=== PATIENT | female | born 1965 | race Caucasian/White ===

== ENCOUNTER 2020-09-11 21:39 | Observation (INO) ==
[2020-09-11] MEDS ORDERED: Aspirin 81 MG TAB.CHEW PO ONE (22:04)
[2020-09-11 22:06] LABS: Basophils % 0.6 %; Eosinophils # 0.2 K/mcL (0.0-0.6); Eosinophils % 2.2 %; Hematocrit 38.6 % (35.3-44.9); Immature Granulocytes % 0.4 % (0-4); Lymphocytes # 2.5 K/mcL (0.6-4.6); Lymphocytes % 34.9 %; Mean Corpuscular HGB Conc 33.7 g/dL (31.6-35.5); Mean Corpuscular Volume 89.1 fL (83.0-100.0); Mean Platelet Volume 10.1 fL (9.4-12.4); Monocytes # 0.6 K/mcL (0.0-1.3); Monocytes % 7.9 %; Neutrophils # 3.9 K/mcL (1.6-8.9); Platelet Count 287 K/mcL (140-400); Red Blood Count 4.33 M/mcL (3.82-4.97); Red Cell Distribution Width 11.9 % (11.5-14.5); White Blood Count 7.2 K/mcL (4.3-11.1)
[2020-09-11] MEDS ORDERED: *HR* FentaNYL (PF) 100 MCG/2 ML VIAL IVP ONE (22:06)
[2020-09-11 22:27] LABS: BUN/Creatinine Ratio 21 (6-26); Blood Urea Nitrogen 14 mg/dL (6-20); Calcium 9.3 mg/dL (8.6-10.3); Carbon Dioxide 24 mEq/L (23-29); Chloride 108 mEq/L (98-107); Glucose 114 mg/dL (70-105); Osmolality,Calculated 289 (280-300); Potassium 3.5 mEq/L (3.5-5.1); Sodium 139 mEq/L (136-145); Troponin I < 0.03 ng/mL (< 0.04); eGFR For African Americans > 60 (> 60); eGFR For Non-African Americans > 60 (> 60)
[2020-09-11] MEDS ORDERED: Acetaminophen 325 MG TABLET PO PRN (23:32)
[2020-09-11] MEDS ORDERED: Ondansetron ODT 4 MG TAB.RAPDIS SL PRN (23:32)
[2020-09-11] MEDS ORDERED: rOPINIRole 1 MG TABLET PO SCH (23:45)
[2020-09-11] MEDS ORDERED: Albuterol 2.5 MG/3 ML NEBULIZER IH PRN (23:57)
[2020-09-11] MEDS ORDERED: Nicotine 21 MG PATCH.TD24 TD PRN (23:59)
[2020-09-12] MEDS ORDERED: rOPINIRole 1 MG TABLET PO SCH (00:30)
[2020-09-12 03:03] LABS: BUN/Creatinine Ratio 25 (6-26); Blood Urea Nitrogen 17 mg/dL (6-20); Calcium 9.1 mg/dL (8.6-10.3); Carbon Dioxide 26 mEq/L (23-29); Chloride 107 mEq/L (98-107); Glucose 111 mg/dL (70-105); Osmolality,Calculated 290 (280-300); Potassium 3.2 mEq/L (3.5-5.1); Sodium 139 mEq/L (136-145); eGFR For African Americans > 60 (> 60); eGFR For Non-African Americans > 60 (> 60)
[2020-09-12] MEDS ORDERED: *HR* Enoxaparin 40 MG/0.4 ML SYRINGE SQ SCH (06:00)
[2020-09-12 08:39] LABS: Chol/HDL Ratio 7.8 (0-4.9); Cholesterol 217 mg/dL (< 200); HDL Cholesterol 28 mg/dL (40-59); LDL Cholesterol,Calculated 146 mg/dL (< 100); Triglycerides 214 mg/dL (< 150)
[2020-09-12] MEDS ORDERED: Regadenoson 0.4 MG/5 ML SYRINGE IVP ONE (08:42)
[2020-09-12] MEDS ORDERED: Aspirin 81 MG TAB.CHEW PO SCH (09:00)
[2020-09-12 09:50] LABS: Estimated Average Glucose 111 mg/dl; Hemoglobin A1C 5.5 %
[2020-09-12] MEDS ORDERED: Budesonide/Formoterol 160/4.5 1 PUFF INH IH SCH (10:00)
[2020-09-12] MEDS ORDERED: BuPROPion XL (24 HR) 150 MG TABLET PO SCH (12:00)
[2020-09-12] MEDS ORDERED: Fenofibrate 54 MG TABLET PO SCH (12:00)
[2020-09-12 13:00] VITALS: BP 109/79
== END 2020-09-12 14:07 | disposition home or self-care (01) ==
LOC: 3BNU 21:39 → EMEROOARM 21:39 → SUATTDRO 09-12 00:13 → 3BNU 09-12 00:57
PROVIDERS: ADMIT Family Medicine; ATTEND Internal Medicine